=== PATIENT | male | born 1970 | race Two or more races ===

== ENCOUNTER 2022-03-18 07:21 | Outpatient (CLI) | payer OTHER | END 2022-03-18 07:23 | disposition home or self-care (01) | LOC: NUCLEAR 07:21 | PROVIDERS: ATTEND Internal Medicine Cardiovascular Disease | DX: I11.0 Hypertensive heart disease with heart failure (principal); I50.22 Chronic systolic (congestive) heart failure; I25.118 Atherosclerotic heart disease of native coronary artery with other forms of angina pectoris; I25.2 Old myocardial infarction | CPT/HCPCS: 78452; A9500 ==

== ENCOUNTER 2023-03-10 09:37 | Outpatient (CLI) | payer OTHER | END 2023-03-10 09:42 | disposition home or self-care (01) | LOC: NUCLEAR 09:37 | PROVIDERS: ATTEND Internal Medicine Cardiovascular Disease | DX: I50.22 Chronic systolic (congestive) heart failure (principal); I25.5 Ischemic cardiomyopathy | CPT/HCPCS: 78472; A9560 ==